=== PATIENT | male | born 1970 | race Caucasian/White ===

== ENCOUNTER 2021-04-08 09:22 | Emergency (ER) | payer OTHER ==
[~2021-04-08] VITALS: Ht 182.9 cm; Wt 102.0 kg
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
--- NOTE | 2021-04-08 09:30 | NUR ---
at bedside for exam.
[2021-04-08] MEDS ORDERED: OMEP-110 PO (09:46)
--- NOTE | 2021-04-08 09:50 | NUR ---
12 lead EKG completed by electrician technician.
[2021-04-08] MEDS ORDERED: SODIUM CHLORIDE 0.9% 1,000ML IVBOLUS ONE (10:00)
--- NOTE | 2021-04-08 10:00 | NUR ---
Order for liter NS infusion clarified with MD and states to just complete the current liter started [employer] by [employer].
--- NOTE | 2021-04-08 10:25 | NUR ---
Pt saline locked and ambulatory to restroom to urinate at this time.
--- NOTE | 2021-04-08 10:28 | NUR ---
IVF restarted and pt awaiting repeat EKG and fluid infusion.
--- NOTE | 2021-04-08 10:56 | NUR ---
Ubaldo torres tested and passed. MD barrera
[2021-04-08 11:09] VITALS: BP 137/90
== END 2021-04-08 11:13 | disposition home or self-care (01) ==
LOC: ED 11:10
DX: E86.0 Dehydration (principal); R55 Syncope and collapse; I49.3 Ventricular premature depolarization
CPT/HCPCS: 93005; 96360; 99283; J7030